=== PATIENT | male | born 1990 | race Two or more races ===

== ENCOUNTER → 2022-09-08 | Outpatient (CLI) | payer OTHER ==
[2022-09-08 10:41] VITALS: BP 137/80
== END | disposition home or self-care (01) ==
LOC: XYW 09:15
PROVIDERS: ATTEND Internal Medicine
DX: R07.9 Chest pain, unspecified (principal); R06.02 Shortness of breath; R00.2 Palpitations; I10 Essential (primary) hypertension
CPT/HCPCS: 93017

== ENCOUNTER → 2022-10-10 | Outpatient (CLI) | payer OTHER | END | disposition home or self-care (01) | LOC: XYW 12:47 | PROVIDERS: ATTEND Internal Medicine | DX: I08.0 Rheumatic disorders of both mitral and aortic valves (principal); R07.89 Other chest pain | CPT/HCPCS: 93306 ==

== ENCOUNTER 2022-10-18 08:51 | Day surgery (SDC) | payer OTHER ==
[2022-10-17 10:16] LABS: Basophils # (auto) 0.1 10 ^3/uL (0-0.2); Basophils % (auto) 1.7 % (0.0-2.0); Eosinophils # (auto) 0.1 10 ^3/uL (0-0.8); Eosinophils % (auto) 2.4 % (0.0-7.0); Hematocrit 43.7 % (41.0-53.0); Hemoglobin 14.9 g/dL (13.5-17.5); Lymphocytes % (auto) 35.8 % (10.0-50.0); Mean Corpuscular Hemoglobin 30.9 pg (28.0-32.0); Mean Corpuscular Hgb Conc. 34.2 g/dL (32.0-36.0); Mean Corpuscular Volume 90.4 fL (80.0-100.0); Monocytes # (auto) 0.5 10 ^3/uL (0-1.3); Monocytes % (auto) 8.2 % (0.0-12.0); Neutrophils % (auto) 51.9 % (37.0-80.0); Red Blood Cells 4.83 10^6/uL (4.5-5.90); Red Cell Distribution Width 13.2 % (11.8-14.3); White Blood Cell 5.7 10^3/uL (4.4-10.8)
[2022-10-17 10:28] LABS: Partial Thromboplastin Time 31.2 sec (24.6-33.4)
[2022-10-17 10:57] LABS: Albumin 4.1 g/dL (3.4-5.0); Potassium 4.5 mmol/L (3.5-5.1)
[2022-10-17 11:02] LABS: BUN/Creatinine Ratio 16.2 (10.0-20.0); Bilirubin, Total 0.5 mg/dL (0.2-1.0); Calcium 8.9 mg/dL (8.5-10.1); Total Protein 7.8 g/dL (6.4-8.2)
[2022-10-18] VITALS (9 sets, daily range): BP systolic 107–125; BP diastolic 49–80
[~2022-10-18] VITALS: Ht 177.8 cm; Wt 97.5 kg
[~2022-10-18 08:51] MED LIST: ALPR0.5T7 PO; HYDR25TA5 PO; METO-289 PO
[2022-10-18] MEDS ORDERED: VERAPAMIL 2.5MG/ML INJ 2ML VIAL IV ONE (12:40)
[2022-10-18] MEDS ORDERED: HEPARIN SODIUM (PORCINE) 5000 UNITS/ML 1ML VIAL ONE (12:40)
[2022-10-18] MEDS ORDERED: ANGIOMAX 250 MG VIAL IV ONE (12:40)
[2022-10-18] MEDS ORDERED: IODIXANOL 320MG/ML 100ML BTL IV ONE (12:41)
[2022-10-18] MEDS ORDERED: fentaNYL CITRATE 100 MCG/2 ML VL ONE (12:41)
[2022-10-18] MEDS ORDERED: MIDAZOLAM HCL 2MG/2ML 2ml VIAL (1mg/ml) ONE (12:41)
[2022-10-18] MEDS ORDERED: LIDOCAINE 2%HCL (LOCAL ANESTH.) INJ 20ML MDV ONE (12:41)
[2022-10-18] MEDS ORDERED: SODIUM CHL 0.9% 0 ML ONE (12:41)
== END 2022-10-18 16:05 | disposition home or self-care (01) ==
LOC: CATH 08:51
PROVIDERS: ATTEND Internal Medicine
DX: R07.89 Other chest pain (principal); I10 Essential (primary) hypertension; Z79.899 Other long term (current) drug therapy
CPT/HCPCS: 36415; 76937; 80053; 85025; 85610; 85730; 93458; C1769; C1887; C1894; J1644; J2250; J3010; Q9967; 99152